=== PATIENT | female | born 1960 | race Caucasian/White ===

== ENCOUNTER 2018-01-07 20:25 | Emergency (ER) | payer MEDICAID, OTHER ==
[~2018-01-07] VITALS: Ht 157.5 cm; Wt 70.3 kg
[2018-01-07 20:29] VITALS: BP 135/73
[2018-01-07] MEDS ORDERED: ONDANSETRON 4 MG ODT PO ONE (20:50)
[2018-01-07] MEDS ORDERED: DICYCLOMINE HCL LIQUID 20 MG, ALUMINUM HYD/MAG/SIMETHICONE 30 ML, LIDOCAINE VISCOUS 2% ... PO ONE ×3 (20:50)
[2018-01-07 22:05] VITALS: BP 133/88
== END 2018-01-07 22:00 | disposition home or self-care (01) ==
LOC: MED 20:25
DX: N39.0 Urinary tract infection, site not specified (principal); R55 Syncope and collapse; E11.9 Type 2 diabetes mellitus without complications; F03.90 Unspecified dementia, unspecified severity, without behavioral disturbance, psychotic disturbance, mood disturbance, and anxiety; Z90.49 Acquired absence of other specified parts of digestive tract; Z98.890 Other specified postprocedural states
CPT/HCPCS: 81002; 93005; 99283; Q0162